=== PATIENT | female | born 1955 | race Hispanic/Latino ===

== ENCOUNTER 2024-03-12 10:00 | Emergency (ER) | payer MEDICARE ==
[~2024-03-12] VITALS: Ht 154.9 cm; Wt 86.2 kg
[~2024-03-12 10:00] MED LIST: ALENDRONATE SOD70 MG PO; ATORVASTATIN CA20 MG PO; FENOFIBRATE145 MG PO; MECLIZINE HCL12.5 MG PO; METOPROLOL SUCC25 MG PO; OMEPRAZOLE40 MG PO; VITAMIN D22000 UNIT PO
[2024-03-12 10:05] VITALS: PULSE 66; RESP 15; TEMP 98.5
[2024-03-12] MEDS ORDERED: KETOROLAC TROMETHAMINE 60 MG/2 ML VIAL IM ONE (10:15)
[2024-03-12] MEDS ORDERED: KETOROLAC TROMETHAMINE 30 MG/ML VIAL ONE (10:22)
[2024-03-12] MEDS: KETOROLAC TROMETHAMINE 30 MG/ML VIAL IM ONE (10:30)
[2024-03-12 11:26] VITALS: BP 167/85; PULSE 64; RESP 17; O2SAT 100
== END 2024-03-12 11:28 | disposition home or self-care (01) ==
LOC: ER 10:05
DX: M79.662 Pain in left lower leg (principal); S83.8X2A Sprain of other specified parts of left knee, initial encounter; X50.1XXA Overexertion from prolonged static or awkward postures, initial encounter; Y92.89 Other specified places as the place of occurrence of the external cause; I10 Essential (primary) hypertension; E78.5 Hyperlipidemia, unspecified
CPT/HCPCS: 93971; 99283; J1885

== ENCOUNTER 2024-03-17 16:45 | Emergency (ER) | payer MEDICARE ==
[~2024-03-17] VITALS: Ht 154.9 cm; Wt 95.3 kg
[2024-03-17 16:58] VITALS: PULSE 65; RESP 16; TEMP 99
[2024-03-17] MEDS: HYDROCODONE/APAP 5MG-325MG TAB PO ONE (17:50)
[2024-03-17] MEDS ORDERED: ULTRAM 50MG50 MG PO (18:36)
[2024-03-17 18:47] VITALS: BP 132/78; PULSE 64; RESP 16; TEMP 98.8; O2SAT 99
== END 2024-03-17 18:35 | disposition home or self-care (01) ==
LOC: ER 17:13
DX: M79.605 Pain in left leg (principal); M17.12 Unilateral primary osteoarthritis, left knee; I10 Essential (primary) hypertension; E78.5 Hyperlipidemia, unspecified; I48.91 Unspecified atrial fibrillation
CPT/HCPCS: 99283

== ENCOUNTER 2024-04-04 14:44 | Outpatient (RCR) | payer MEDICARE ==
[~2024-04-04 14:44] MED LIST changes: +ULTRAM 50MG50 MG PO
== END 2024-04-13 ==
LOC: PT 14:44
PROVIDERS: ATTEND Specialist
DX: M17.12 Unilateral primary osteoarthritis, left knee (principal)

== ENCOUNTER → 2024-06-19 | Day surgery (SDC) | payer MEDICARE ==
[~2024-06-19] MED LIST changes: +ACETAMINOPHEN 1000 MG/100 ML 100 ML IV ONE; +ACETAMINOPHEN 1000 MG/100 ML IV PRN; +AMIODARONE HCL200 MG PO; +ASPIRIN 325 MG TAB PO SCH; +BUPIVACAINE 0.25% 30ML SDV ONE; +BUPIVACAINE/EPI 0.5% 30ML SDV-MPF INJ ONE; +CALCIUM + VITA1 EAC1 PO; +CELECOXIB 100 MG CAP PO SCH; +DEXAMETHASONE SOD PHOS INJ 4 MG/ML SDV ONE; +DIPHENHYDRAMINE HCL INJ 50 MG/ML VIAL IV PRN; +DOCUSATE SODIUM 100 MG CAP PO PRN; +ELIQUIS5 MG PO; +FAMOTIDINE 20 MG/2 ML VIAL IV ONE; +FENTANYL CITRATE/PF 100MCG/2 ML INJ ONE; +GLYCOPYRROLATE INJ 0.2 MG/ML VIAL ONE; +HYDROCODONE/APAP 5MG-325MG TAB PO PRN; +HYDROCODONE/APAP 7.5MG-325MG 1 EA TAB ONE; +HYDROCODONE/APAP 7.5MG-325MG 1 EA TAB PO PRN; +KETAMINE 50MG/5ML SYR ONE; +LIDOCAINE HCL 2% LOCAL INJ 5 ML SDV VIAL INJ ONE; +MIDAZOLAM HCL 2 MG/2 ML VIAL ONE; +ONDANSETRON HCL INJ 2MG/ML 2ML 2 MG/ML VIAL IV PRN; +ONDANSETRON HCL INJ 2MG/ML 2ML 2 MG/ML VIAL ONE; +PROPOFOL IV EMULSION 10 MG/ML 20 ML VIAL ONE; +ROPIVACAINE 123 MG, EPINEPHRINE HCL 1:1000 1ML 0.25 MG, CLONIDINE HCL 0.04 MG, KETOROLA... INJ ONE; +ROPIVACAINE 246.25 MG, EPINEPHRINE HCL 1:1000 1ML 0.5 MG, CLONIDINE HCL 0.08 MG, KETORO... INJ ONE; +SODIUM CHLORIDE 0.9% 1000ML 1,000 ML IV SCH
[2024-06-19] MEDS: CEFAZOLIN SODIUM 2 GM ONE (06:17)
[2024-06-19] MEDS: CELECOXIB 200 MG CAP ONE (06:18)
[2024-06-19] MEDS: LACTATED RINGER'S 1,000 ML ONE (06:18)
[2024-06-19] MEDS: GABAPENTIN 300 MG CAP ONE (06:18)
[2024-06-19] MEDS: DEXAMETHASONE SOD PHOS 10 MG/1 ML VIAL ONE (06:18)
[2024-06-19 12:00] VITALS: BP 144/82; PULSE 82; RESP 15; O2SAT 98
== END | disposition home health service (06) ==
LOC: OR 06:00
PROVIDERS: ATTEND Specialist
DX: M17.12 Unilateral primary osteoarthritis, left knee (principal); I10 Essential (primary) hypertension; E78.00 Pure hypercholesterolemia, unspecified; I48.91 Unspecified atrial fibrillation; Z79.01 Long term (current) use of anticoagulants; K29.70 Gastritis, unspecified, without bleeding; K21.9 Gastro-esophageal reflux disease without esophagitis; E66.9 Obesity, unspecified; Z68.38 Body mass index [BMI] 38.0-38.9, adult; M06.9 Rheumatoid arthritis, unspecified; Z01.810 Encounter for preprocedural cardiovascular examination; Z01.812 Encounter for preprocedural laboratory examination; Z85.038 Personal history of other malignant neoplasm of large intestine; Z90.49 Acquired absence of other specified parts of digestive tract; Z79.899 Other long term (current) drug therapy
CPT/HCPCS: 27447; 73560; 86850; 86870; 86880; 86900; 86905; 93005; 97110; 97116; 97161; 97530; 99001; C1713 ×2; C1776 ×3; J0131; J0171; J1100 ×2; J1885; J2003; J2250; J2405; J2704; J2795; J3010; J7121

== ENCOUNTER 2024-09-08 14:33 | Outpatient (RCR) | payer MEDICARE ==
[~2024-09-08 14:33] MED LIST changes: -ACETAMINOPHEN 1000 MG/100 ML 100 ML IV ONE; -ACETAMINOPHEN 1000 MG/100 ML IV PRN; -ASPIRIN 325 MG TAB PO SCH; -BUPIVACAINE 0.25% 30ML SDV ONE; -BUPIVACAINE/EPI 0.5% 30ML SDV-MPF INJ ONE; -CELECOXIB 100 MG CAP PO SCH; -DEXAMETHASONE SOD PHOS INJ 4 MG/ML SDV ONE; -DIPHENHYDRAMINE HCL INJ 50 MG/ML VIAL IV PRN; -DOCUSATE SODIUM 100 MG CAP PO PRN; -FAMOTIDINE 20 MG/2 ML VIAL IV ONE; -FENTANYL CITRATE/PF 100MCG/2 ML INJ ONE; -GLYCOPYRROLATE INJ 0.2 MG/ML VIAL ONE; -HYDROCODONE/APAP 5MG-325MG TAB PO PRN; -HYDROCODONE/APAP 7.5MG-325MG 1 EA TAB ONE; -HYDROCODONE/APAP 7.5MG-325MG 1 EA TAB PO PRN; -KETAMINE 50MG/5ML SYR ONE; -LIDOCAINE HCL 2% LOCAL INJ 5 ML SDV VIAL INJ ONE; -MIDAZOLAM HCL 2 MG/2 ML VIAL ONE; -ONDANSETRON HCL INJ 2MG/ML 2ML 2 MG/ML VIAL IV PRN; -ONDANSETRON HCL INJ 2MG/ML 2ML 2 MG/ML VIAL ONE; -PROPOFOL IV EMULSION 10 MG/ML 20 ML VIAL ONE; -ROPIVACAINE 123 MG, EPINEPHRINE HCL 1:1000 1ML 0.25 MG, CLONIDINE HCL 0.04 MG, KETOROLA... INJ ONE; -ROPIVACAINE 246.25 MG, EPINEPHRINE HCL 1:1000 1ML 0.5 MG, CLONIDINE HCL 0.08 MG, KETORO... INJ ONE; -SODIUM CHLORIDE 0.9% 1000ML 1,000 ML IV SCH
== END 2024-09-11 ==
LOC: PT 14:33
PROVIDERS: ATTEND Physician Assistant
DX: Z47.1 Aftercare following joint replacement surgery (principal); Z96.652 Presence of left artificial knee joint; M62.81 Muscle weakness (generalized); R26.2 Difficulty in walking, not elsewhere classified; M25.561 Pain in right knee; M25.661 Stiffness of right knee, not elsewhere classified

== ENCOUNTER 2024-10-10 14:00 | Outpatient (RCR) | payer MEDICARE | END 2024-10-11 | LOC: PT 14:00 | PROVIDERS: ATTEND Physician Assistant | DX: Z47.1 Aftercare following joint replacement surgery (principal); Z96.652 Presence of left artificial knee joint; M25.561 Pain in right knee; M25.661 Stiffness of right knee, not elsewhere classified; M62.81 Muscle weakness (generalized); R26.2 Difficulty in walking, not elsewhere classified ==